=== PATIENT | male | born 1960 | race Native Hawaiian/Other Pacific Islander ===

== ENCOUNTER 2018-06-23 06:01 | Inpatient (IN) | payer OTHER ==
[2018-06-23 07:10] VITALS: BMI 30.2
[2018-06-23] MEDS ORDERED: Propofol 10 mg/ml Inj (20 ML) ONE (07:30)
[2018-06-23] MEDS ORDERED: Rocuronium 10 mg/ml (5 ml) ONE ×2 (07:30→10:27)
[2018-06-23] MEDS ORDERED: Succinylcholine Chloride 20 mg/ml Syr (5 ml) IV ONE (07:31)
[2018-06-23] MEDS ORDERED: Lidocaine 4% (Laryng-O-Jet) Kit MM ONE (07:31)
[2018-06-23] MEDS ORDERED: Dexamethasone 4 mg/1 ml ONE (07:35)
[2018-06-23] MEDS ORDERED: Absorbable Gelatin Sponge Size 12-7 ONE (08:11)
[2018-06-23] MEDS ORDERED: EPINEPHrine 1 mg/ml (1:1000) Inj ONE (08:11)
[2018-06-23] MEDS ORDERED: Bupivacaine 0.5% Inj(30mL) ONE (08:11)
[2018-06-23] MEDS ORDERED: Thrombin Topical 5,000 Int Units Spray Kit ONE (08:11)
[2018-06-23] MEDS ORDERED: Sodium Chloride 0.9% 20 ML IV ONE (08:11)
[2018-06-23] MEDS ORDERED: Midazolam 2 MG/2 ML VIAL ONE (08:25)
[2018-06-23] MEDS ORDERED: Tranexamic Acid 1,000 MG in Sodium Chloride 0.9% 100 ML IVPB ONE (08:57)
[2018-06-23] MEDS ORDERED: Morphine 5 mg/10 ml preservative-free Inj(Duramorph) ONE (09:04)
[2018-06-23] MEDS ORDERED: Sodium Chloride 0.9% Inj (10mL) IV ONE (09:51)
[2018-06-23] MEDS ORDERED: EPINEPHrine 1 mg/ml (1:1000) Inj IV ONE (09:51)
[2018-06-23] MEDS ORDERED: Bupivacaine 0.5% 50 ML IJ ONE (09:51)
[2018-06-23] MEDS ORDERED: Morphine 5 mg/10 ml preservative-free Inj(Duramorph) INJ ONE (09:51)
[2018-06-23] MEDS ORDERED: Neostigmine 1:1000 (1 mg/ml) Inj ONE (10:35)
--- NOTE | 2018-06-23 10:57 | PCM.SURG1 ---
Surgeon's Initial Post Op Note - Surgeon's Notes Surgeon: Junie Werner MD [employer]orer [employer]age: Karlo Chatterjee PA-C, Shelley Noel, Favio Yao DPM Pre-Operative Diagnosis: Left Knee OA Operative Findings: see op report Post-Operative Diagnosis: same as pre-op dx Operation Performed: L TKR Specimen/Specimens Removed: left knee bone and soft tissue Estimated Blood Loss: EBL {In ML}: 50 Date of Surgery/Procedure: 06/23/18 Time of Surgery/Procedure: 09:30
[2018-06-23] MEDS ORDERED: HYDROmorphone 0.5 mg/0.5 ml ISec IVP PRN (11:06)
[2018-06-23] MEDS: Lactated Ringer's 1,000 ML IV SCH ×2 (14:30→21:08)
--- NOTE | 2018-06-23 15:08 | RAD ---
Date of service: 06/23/2018 PROCEDURE: Left Knee Radiographs. HISTORY: Pain. COMPARISON: Bilateral knees radiographs 07/24/2016. TECHNIQUE: 2 views obtained. FINDINGS: BONES: Postop changes are identified at the anterior knee and thigh soft tissues including skin alphonso at the midline status post left total knee replacement. Hardware appears in good apparent position at the distal femur and proximal tibia with patella appearing intact grossly. Posterior thigh soft tissue calcifications identified. JOINTS: Interval left total knee replacement hardware in situ. JOINT EFFUSION: None. OTHER FINDINGS: None. IMPRESSION: Interval left total knee replacement with hardware in good apparent position. No acute fracture is identified with limited postoperative soft tissue changes at the anterior knee and mid to distal thigh soft tissues.
[2018-06-23] MEDS ORDERED: ceFAZolin 1 GM in Sodium Chloride 0.9% 100 ML IVPB ONE ×2 (15:30→21:30)
[2018-06-23] MEDS: oxyCODONE 5 mg Immediate Release Tab PO PRN (19:12)
--- NOTE | 2018-06-23 20:35 | OP ---
PROCEDURE DATE: 06/23/2018 PREOPERATIVE DIAGNOSIS: Left knee arthritis. POSTOPERATIVE DIAGNOSIS: Left knee arthritis. PROCEDURE: Left total knee replacement. ATTENDING PHYSICIAN: Junie Werner MD CASE FILLER: Karlo Chatterjee PA-C IMPLANTS SIZE: DePuy, Attune knee system. Size 6 tibial baseplate, size 6 femur, 10-mm polyethylene insert, 38-mm patella button. ANESTHESIA TYPE: General. ESTIMATED BLOOD LOSS: 50 mL. COMPLICATIONS: None. HISTORY: 1. Left knee. 2. General anesthesia. Examined under anesthesia. 3. Range of motion is from 3 to 120, varus alignment that was correctable. 4. Size 4 tibial baseplate. 5. A 10-mm trial spacer. 6. [place] patella, patella width was 26, patella button size was 38. 7. Size 6 femur. 8. A 10-mm polyethylene insert. The patient with prolonged history of left knee pain progressively getting worse despite extensive conservative management, which included activity modification, injections, anti-inflammatory modification and physical therapy. X-rays had revealed advanced arthritis. Patient was indicated for total knee replacement due to continued pain and limited mobility. I had a detailed discussion with the patient in the office explaining the nature of the surgery, alternatives of surgery, risks and benefits, rehabilitation protocol and surgical markings. Risks of surgery include but not limited to continued pain, lack of motion, infection, vascular injury, DVT / PE, nerve injury including peroneal nerve dysfunction, reflex sympathetic dystrophy, compartment syndrome, unforeseen medical and/or anesthesia complications, limb loss, and even . The patient expressed an understanding of the risks and possible benefits of the procedure, and is also aware of the alternatives to surgery. PROCEDURE: On the day of the surgery, the patient was admitted to pre-operative holding area. A laterality sheet was completed confirming the correct operative site. The correct surgical knee was marked in the holding area and informed consent was signed from the patient. Once again, I reviewed the risks and benefits of the surgery with the patient in detail. These risks include but are not limited to continued pain, lack of motion, infection, vascular injury, DVT / PE, nerve injury including peroneal nerve dysfunction, reflex sympathetic dystrophy, symptomatic hardware, need for further procedure and surgeries, instability, iatrogenic fractures, compartment syndrome, unforeseen medical and/or anesthesia complications, limb loss, and even . The patient expressed an understanding of the risks and possible benefits of the procedure, also aware of the alternatives to surgery and signed the informed consent. The patient was transported to the operating room and placed in the supine position, general anesthesia was obtained. A padded tourniquet was applied to patient's operative thigh and appropriate prophylactic antibiotics were given. The operative leg was draped and prepped in standard sterile manner. Timeout was completed, confirming patient's left knee to be the correct operative site. Using an Esmarch, the extremity was exsanguinated and tourniquet was inflated to 350 mmHg. The surgical incision markings were made using patella border, tibial tubercle, patella and quadriceps tendon. Using a 10 blade, a midline incision was made. Skin dissection was taken until the prepatellar fascia was identified and the corners of the patellar tendon were marked for proper closure at the end of the procedure. Using a fresh 10 blade, a medial parapatellar arthrotomy was performed. The knee was exposed in the standard manner. The deep MCL was elevated for exposure, medial and lateral menisci were removed, ACL and PCL were also transected. The tibia was subluxed anteriorly. Planned tibial cut was made with power saw, using extra-medullary guide, perpendicular to mechanical axis of the tibia. After the cut was made, the alignment was also checked and was found to be appropriate. Tibial cut surface was measured with trial base plate and it was noted that 6 would provide sufficient coverage without overhang. Tibial component was externally rotated and marked. Next, the knee was placed into 90 degrees of flexion. A drill hole was made within the femoral notch anterior to PCL insertion for placement of intramedullary femoral rosie. Intramedullary femoral rosie was inserted within the femoral canal and planned distal femoral cut was made. After the cut, knee was brought into full extension. Spacer blocks were used to check the extension balancing both in full extension and 30 degrees of flexion. It was found that 10-mm trial spacer block allowed full extension with symmetric varus and valgus balancing. Next we proceed with Patella resurfacing. Patella width was found 26 mm. Using the free-hand technique the arthritic patella surface was resected. Patella was sized using the guide and it was noted that 38 mm. Patella dome button would be appropriate for the patient. Next the size of femoral component was determined using the posterior referencing guide. It was noted that a size 6 femur would be appropriate for this patient without causing any significant notching. A 4 x 1 cutting block was placed and flexion gap balancing was checked. The flexion gap was found to be symmetric to the extension gap. Anterior and posterior condyle, anterior and posterior chamfer cuts were made. Next, appropriate size box cut for femoral component was prepared using the guide. The femoral trial component was impacted onto the distal femur. Appropriate size tibial trial component was also placed on the cut surface of the tibia. Using the drill and punch, keel for tibial implant was prepared. Trial tibial tray was secured onto the tibia using pins. Different size trial polyethylene inserts were secured on to the trial tibial tray to critically assess the following parametes: Full range of motion, extension and flexion gap balancing, mid-flexion stability, anterior and posterior drawer, and patellar tracking. All parameter were found to be satisfactory with 10-mm insert. All the trial components were removed. Implants were opened on the back table. Cement was mixed and we proceed with cement fixation of the implants. Tibial tray, femoral component and patellar dome button were secured with cement. Polyethylene insert was secured onto the tibial tray using locking mechanism. The knee was reduced and brought into full extension. Cement was allowed to harden until final component fixation. Knee was taken through the final range of motion for stability testing, and found to be satisfactory. During this procedure, I was assisted by Karlo Chatterjee PA-C, who assisted in positioning the patient on the operating room table as well as transferring the patient from the operating room table to the recovery room stretcher. In addition, Karlo Chatterjee PA-C assisted me during the actual operative procedure by positioning, protecting critical neurovascular structures, exposure of the joint, and proper positioning of the implants. The presence of Karlo Chatterjee PA-C as my operative respiratory therapist assistant was medically necessary to ensure the utmost safety of the patient in the pre, intra-, and post-operative periods. Junie Werner MD
[2018-06-23] MEDS: oxyCODONE 10 mg ER Tab (oxyCONTIN) PO SCH (21:06)
[2018-06-24] MEDS: Lactated Ringer's 1,000 ML IV SCH (06:00)
[2018-06-24 06:49] LABS: BASO % 0.4 % (0.0-2.0); EOS % 0.3 % (0.0-4.0); HEMOGLOBIN 13.4 g/dL (12.0-18.0); LYMPH # 1.4 K/uL (1.0-4.3); LYMPH % 11.2 % (20.0-40.0); MEAN CELL VOLUME 90.7 fl (80.0-94.0); MEAN CORPUSCULAR HEMOGLOBIN 31.2 pg (27.0-31.0); MEAN CORPUSCULAR HGB CONC 34.4 g/dL (33.0-37.0); MEAN PLATELET VOLUME 7.7 fl (7.2-11.7); MONO # 1.6 K/uL (0.0-0.8); MONO % 12.5 % (0.0-10.0); NEUT # 9.5 K/uL (1.8-7.0); NEUT % 75.6 % (50.0-75.0); NRBC % 0.1 % (0.0-0.0); RBC 4.3 Mil/uL (4.40-5.90); RED CELL DISTRIBUTION WIDTH 13.9 % (11.5-14.5); WHITE BLOOD COUNT 12.5 K/uL (4.8-10.8)
[2018-06-24 06:52] LABS: PROTHROMBIN TIME 11.7 Seconds (9.8-13.1)
[2018-06-24 06:55] LABS: PARTIAL THROMBOPLASTIN TIME 32.7 Seconds (25.6-37.1)
[2018-06-24 06:59] LABS: ALB/GLOB RATIO 1.3 (1.0-2.1); ALBUMIN 3.3 g/dL (3.5-5.0); ALT/SGPT 39 U/L (21-72); AST/SGOT 24 U/L (17-59); BLOOD UREA NITROGEN 16 mg/dl (9-20); CALCIUM 8.2 mg/dL (8.4-10.2); GFR NON-AFRICAN AMERICAN > 60
[2018-06-24] MEDS: oxyCODONE 10 mg ER Tab (oxyCONTIN) PO SCH ×2 (08:28→20:50)
[2018-06-24] MEDS: Multivitamin With Minerals Tab PO SCH (08:33)
[2018-06-24] MEDS ORDERED: IRON PO SCH (09:00)
[2018-06-24] MEDS ORDERED: Patient's Own Med (Icosapent Ethyl [Vascepa] 1 GM) PO SCH (09:00)
[2018-06-24] MEDS ORDERED: FOLIC ACID PO SCH (09:00)
[2018-06-24] MEDS ORDERED: MULTIVITAMIN PO SCH (09:00)
--- NOTE | 2018-06-24 09:02 | CP.PCM.PN ---
Subjective - Date & Time of Evaluation Date of Evaluation: 06/24/18 Time of Evaluation: 08:00 - Subjective Subjective: 57 yo M s/p LTKR POD#1 Pt seen and examined at bedside, comfortable in bed Pt denies any current left knee pain Pt denies SOB, chest pain, N/V/D, numbness/tingling LLE Objective - Vital Signs/Intake and Output Vital Signs (last 24 hours): Temp Pulse Resp BP Pulse Ox 98.6 F 94 H 20 148/82 95 06/24/18 07:54 06/24/18 08:24 06/24/18 07:54 06/24/18 08:24 06/24/18 07:54 - Medications Medications: Current Medications Acetaminophen (Tylenol 325mg Tab) 325 mg PO Q4 PRN PRN Reason: pain1-3orfever Amlodipine Besylate (Norvasc) 5 mg PO DAILY [facility] Last Admin: 06/24/18 08:23 Dose: 5 mg Aspirin (Ecotrin) 81 mg PO DAILY [facility] Last Admin: 06/24/18 08:23 Dose: 81 mg Atorvastatin Calcium (Lipitor) 40 mg PO DAILY [facility] Last Admin: 06/24/18 08:23 Dose: 40 mg Celecoxib (Celebrex) 200 mg PO Q12 [facility] Last Admin: 06/23/18 21:05 Dose: 200 mg Docusate Sodium (Colace) 100 mg PO TID [facility] Last Admin: 06/24/18 08:28 Dose: 100 mg Enoxaparin Sodium (Lovenox) 40 mg SC DAILY [facility]; Protocol Home Med (Icosapent Ethyl [Vascepa]) 1 gm PO DAILY [facility] Lactated Ringer's (Lactated Ringer's) 1,000 mls @ 100 mls/hr IV .Q10H [facility] Last Admin: 06/24/18 06:00 Dose: 100 mls/hr Ketorolac Tromethamine (Toradol) 15 mg IVP Q8 [facility] Stop: 06/25/18 23:59 Last Admin: 06/24/18 08:35 Dose: Not Given Losartan Potassium (Cozaar) 50 mg PO DAILY [facility] Last Admin: 06/24/18 08:24 Dose: 50 mg Metformin HCl (Glucophage) 1,000 mg PO DAILY [facility] Last Admin: 06/24/18 08:23 Dose: 1,000 mg Multivitamins/Minerals (Therapeutic-M Tab) 1 tab PO DAILY [facility] Last Admin: 06/24/18 08:33 Dose: 1 tab Oxycodone HCl (Oxycontin Extended Release Tab) 10 mg PO Q12 [facility] Stop: 07/07/18 21:01 Last Admin: 06/24/18 08:28 Dose: 10 mg Oxycodone HCl (Oxycodone Immediate Release Tab) 5 mg PO Q6 PRN PRN Reason: pain4-6 Last Admin: 06/23/18 19:12 Dose: 5 mg Tramadol HCl (Ultram) 50 mg PO Q4 PRN PRN Reason: pain7-10 - Labs Labs: 06/24/18 05:35 06/24/18 05:35 PT 11.7 Seconds (9.8-13.1) 06/24/18 05:35 INR 1.0 06/24/18 05:35 APTT 32.7 Seconds (25.6-37.1) 06/24/18 05:35 - Constitutional Appears: Well, No Acute Distress - Respiratory Exam Respiratory Exam: Clear to Ausculation Bilateral, NORMAL BREATHING PATTERN - Cardiovascular Exam Cardiovascular Exam: REGULAR RHYTHM, RRR - Extremities Exam Additional comments: Left knee: Dressing C/D/I Calves soft and nontender b/l Normal ROM lt ankle Distal pulses wnl Assessment and Plan - Assessment and Plan (Free Text) Assessment: 57yo M s/p LTKR POD#1 Plan: DVT ppx- start lovenox today PT/OT WBAT LLE F/U daily labs Incentive Spirometer WIll follow Discussed with Dr. Werner
[2018-06-24] MEDS: Enoxaparin 40 mg Syringe SC SCH (13:15)
[2018-06-24] MEDS: oxyCODONE 5 mg Immediate Release Tab PO PRN (13:18)
--- NOTE | 2018-06-25 02:30 | CP.PCM.HP ---
History of Present Illness - History of Present Illness History of Present Illness: CC: Left knee pain HPI: 57 y/o male with a PMH of Osteoarthritis underwent a left total knee replacement with Dr. Werner. As per the pt, he had been suffering from left knee pain and limited ROM for greater than one year. The pt tried conservative measures, which were unsuccessful, necessitating surgery. At the time of evaluation, the pt is in minimal pain and currently on the CPM machine. PMH: HTN, DM, Osteoarthritis, hyperlipidemia. PSH: Left knee cystoscopy. Allergies: NKDA. Review of Systems: Reviewed and no additional remarkable complaints except minimal left knee pain. Objective Appears: Calm, Non-toxic, No Acute Distress. Head Exam: NORMAL INSPECTION, normocephalic. Eye Exam: Normal eye inspection, EOMI, PERRLA. Respiratory Exam: NORMAL BREATHING PATTERN, CTA. Cardiovascular Exam: +S1, +S2. RRR. GI & Abdominal Exam: Soft, non-tender, non-distended. Neurological Exam: Alert, Awake, Oriented x3. Psychiatric exam: Normal mood. Calm and cooperative. Skin exam: Normal color, warm and dry. Assessment/Impression/Plan: 1.) Left total knee replacement -Underwent left TKR with Dr. Werner. Orthopedic consult input appreciated. -Continue CPM ROM machine. Toradol/oxycodone/tramadol for pain. -Monitor for s/s infection. -Lovenox for VTE prophylaxis. -PT/OT evaluation. Present on Admission - Present on Admission Any Indicators Present on Admission: No Past Patient History - Past Medical History & Family History Past Medical History?: Yes - Past Social History Smoking Status: Current Some Days Smoker - CARDIAC Hx Cardiac Disorders: Yes Hx Hypercholesterolemia: Yes Hx Hypertension: Yes - PULMONARY Hx Respiratory Disorders: No - NEUROLOGICAL Hx Neurological Disorder: No - HEENT Hx HEENT Problems: No - RENAL Hx Chronic Kidney Disease: No - ENDOCRINE/METABOLIC Hx Endocrine Disorders: Yes Hx Diabetes Mellitus Type 2: Yes (BORDERLINE) - HEMATOLOGICAL/ONCOLOGICAL Hx Blood Disorders: No Hx Anemia: No Hx Blood Transfusions: No - INTEGUMENTARY Hx Dermatological Problems: No - MUSCULOSKELETAL/RHEUMATOLOGICAL Hx Musculoskeletal Disorders: Yes Hx Arthritis: Yes Hx Falls: No Other/Comment: LIMITED JOINT MOTION LEFT KNEE - GASTROINTESTINAL Hx Gastrointestinal Disorders: No - GENITOURINARY/GYNECOLOGICAL Hx Genitourinary Disorders: No - PSYCHIATRIC Hx Emotional Abuse: No Hx Physical Abuse: No - SURGICAL HISTORY Hx Surgeries: Yes Hx Arthroscopy: Yes (LEFT KNEE) Other/Comment: CYSTOSCOPY - ANESTHESIA Hx Anesthesia: Yes Hx Anesthesia Reactions: No Hx Malignant Hyperthermia: No Has any member of the family had a problem w/ anesthesia?: No Meds Allergies/Adverse Reactions: Allergies Allergy/AdvReac Type Severity Reaction Status Date / Time No Known Allergies Allergy Verified 09/01/14 08:21 Results - Vital Signs Recent Vital Signs: Last Vital Signs Temp 97.9 F 06/25/18 00:00 Pulse 87 06/25/18 00:00 Resp 19 06/25/18 00:00 BP 138/76 06/25/18 00:00 Pulse Ox 96 06/25/18 00:00 - Labs Result Diagrams: 06/24/18 05:35 06/24/18 05:35 Labs: Laboratory Results - last 24 hr 06/24/18 06/24/18 06/24/18 05:35 05:35 05:35 WBC 12.5 H D RBC 4.30 L Hgb 13.4 D Hct 39.0 MCV 90.7 MCH 31.2 H MCHC 34.4 RDW 13.9 Plt Count 203 MPV 7.7 Neut % (Auto) 75.6 H Lymph % (Auto) 11.2 L [place] % (Auto) 12.5 H Eos % (Auto) 0.3 Baso % (Auto) 0.4 Neut # (Auto) 9.5 H Lymph # (Auto) 1.4 [place] # (Auto) 1.6 H Eos # (Auto) 0.0 Baso # (Auto) 0.0 PT INR APTT Sodium 135 Potassium 4.0 Chloride 101 Carbon Dioxide 26 Anion Gap 12 BUN 16 Creatinine 0.9 Est GFR ( Amer) > 60 Est GFR (Non-Af Amer) > 60 POC Glucose (mg/dL) Random Glucose 110 Hemoglobin A1c 5.9 Calcium 8.2 L Total Bilirubin 0.7 AST 24 ALT 39 Alkaline Phosphatase 44 Total Protein 5.9 L Albumin 3.3 L D Globulin 2.6 Albumin/Globulin Ratio 1.3 06/24/18 06/24/18 06/24/18 05:35 05:45 11:22 WBC RBC Hgb Hct MCV MCH MCHC RDW Plt Count MPV Neut % (Auto) Lymph % (Auto) [place] % (Auto) Eos % (Auto) Baso % (Auto) Neut # (Auto) Lymph # (Auto) [place] # (Auto) Eos # (Auto) Baso # (Auto) PT 11.7 INR 1.0 APTT 32.7 Sodium Potassium Chloride Carbon Dioxide Anion Gap BUN Creatinine Est GFR ( Amer) Est GFR (Non-Af Amer) POC Glucose (mg/dL) 115 H 99 Random Glucose Hemoglobin A1c Calcium Total Bilirubin AST ALT Alkaline Phosphatase Total Protein Albumin Globulin Albumin/Globulin Ratio 06/24/18 06/24/18 15:28 21:52 WBC RBC Hgb Hct MCV MCH MCHC RDW Plt Count MPV Neut % (Auto) Lymph % (Auto) [place] % (Auto) Eos % (Auto) Baso % (Auto) Neut # (Auto) Lymph # (Auto) [place] # (Auto) Eos # (Auto) Baso # (Auto) PT INR APTT Sodium Potassium Chloride Carbon Dioxide Anion Gap BUN Creatinine Est GFR ( Amer) Est GFR (Non-Af Amer) POC Glucose (mg/dL) 109 98 Random Glucose Hemoglobin A1c Calcium Total Bilirubin AST ALT Alkaline Phosphatase Total Protein Albumin Globulin Albumin/Globulin Ratio Assessment & Plan (1) Status post total left knee replacement Status: Acute
[2018-06-25] MEDS: oxyCODONE 5 mg Immediate Release Tab PO PRN ×2 (06:14→14:13)
[2018-06-25 07:04] LABS: BASO # 0.1 K/uL (0.0-0.2); BASO % 0.8 % (0.0-2.0); EOS # 0.2 K/uL (0.0-0.7); HEMOGLOBIN 13.1 g/dL (12.0-18.0); LYMPH # 1.9 K/uL (1.0-4.3); LYMPH % 20.5 % (20.0-40.0); MEAN CELL VOLUME 91.4 fl (80.0-94.0); MEAN CORPUSCULAR HGB CONC 33.9 g/dL (33.0-37.0); MEAN PLATELET VOLUME 7.6 fl (7.2-11.7); MONO # 1.5 K/uL (0.0-0.8); MONO % 15.7 % (0.0-10.0); NEUT # 5.7 K/uL (1.8-7.0); NRBC % 0.1 % (0.0-0.0); RBC 4.24 Mil/uL (4.40-5.90); WHITE BLOOD COUNT 9.4 K/uL (4.8-10.8)
[2018-06-25 07:18] LABS: BLOOD UREA NITROGEN 14 mg/dl (9-20); CALCIUM 8.3 mg/dL (8.4-10.2); GFR NON-AFRICAN AMERICAN > 60
[2018-06-25 08:10] VITALS: O2SAT 92
[2018-06-25] MEDS: Multivitamin With Minerals Tab PO SCH (08:55)
[2018-06-25] MEDS: Enoxaparin 40 mg Syringe SC SCH (08:55)
[2018-06-25] MEDS: oxyCODONE 10 mg ER Tab (oxyCONTIN) PO SCH (08:59)
[2018-06-25 16:05] VITALS: BP 165/88; PULSE 95; RESP 20; TEMP 99.1
--- NOTE | 2018-06-25 23:41 | CP.PCM.DIS ---
Provider - Provider Date of Admission: 06/23/18 11:04 Attending physician: Mac Lira MD Primary care physician: Mac Lira MD Time Spent in preparation of Discharge (in minutes): 30 Diagnosis - Discharge Diagnosis (1) Status post total left knee replacement Status: Acute Hospital Course - Lab Results Lab Results: Most Recent Lab Values WBC 9.4 K/uL (4.8-10.8) 06/25/18 05:40 RBC 4.24 Mil/uL (4.40-5.90) L 06/25/18 05:40 Hgb 13.1 g/dL (12.0-18.0) 06/25/18 05:40 Hct 38.8 % (35.0-51.0) 06/25/18 05:40 MCV 91.4 fl (80.0-94.0) 06/25/18 05:40 MCH 31.0 pg (27.0-31.0) 06/25/18 05:40 MCHC 33.9 g/dL (33.0-37.0) 06/25/18 05:40 RDW 14.0 % (11.5-14.5) 06/25/18 05:40 Plt Count 199 K/uL (130-400) 06/25/18 05:40 MPV 7.6 fl (7.2-11.7) 06/25/18 05:40 Neut % (Auto) 61.0 % (50.0-75.0) 06/25/18 05:40 Lymph % (Auto) 20.5 % (20.0-40.0) 06/25/18 05:40 [place] % (Auto) 15.7 % (0.0-10.0) H 06/25/18 05:40 Eos % (Auto) 2.0 % (0.0-4.0) 06/25/18 05:40 Baso % (Auto) 0.8 % (0.0-2.0) 06/25/18 05:40 Neut # (Auto) 5.7 K/uL (1.8-7.0) 06/25/18 05:40 Lymph # (Auto) 1.9 K/uL (1.0-4.3) 06/25/18 05:40 [place] # (Auto) 1.5 K/uL (0.0-0.8) H 06/25/18 05:40 Eos # (Auto) 0.2 K/uL (0.0-0.7) 06/25/18 05:40 Baso # (Auto) 0.1 K/uL (0.0-0.2) 06/25/18 05:40 PT 11.7 Seconds (9.8-13.1) 06/24/18 05:35 INR 1.0 06/24/18 05:35 APTT 32.7 Seconds (25.6-37.1) 06/24/18 05:35 Sodium 135 mmol/l (132-148) 06/25/18 05:40 Potassium 3.6 MMOL/L (3.6-5.0) 06/25/18 05:40 Chloride 100 mmol/L (98-107) 06/25/18 05:40 Carbon Dioxide 28 mmol/L (22-30) 06/25/18 05:40 Anion Gap 11 (10-20) 06/25/18 05:40 BUN 14 mg/dl (9-20) 06/25/18 05:40 Creatinine 0.7 mg/dl (0.8-1.5) L 06/25/18 05:40 Est GFR ( Amer) > 60 06/25/18 05:40 Est GFR (Non-Af Amer) > 60 06/25/18 05:40 POC Glucose (mg/dL) 98 mg/dL (65-110) 06/24/18 21:52 Random Glucose 97 mg/dL (75-110) 06/25/18 05:40 Hemoglobin A1c 5.9 % (4.2-6.5) 06/24/18 05:35 Calcium 8.3 mg/dL (8.4-10.2) L 06/25/18 05:40 Total Bilirubin 0.7 mg/dl (0.2-1.3) 06/24/18 05:35 AST 24 U/L (17-59) 06/24/18 05:35 ALT 39 U/L (21-72) 06/24/18 05:35 Alkaline Phosphatase 44 U/L (38-126) 06/24/18 05:35 Total Protein 5.9 G/DL (6.3-8.2) L 06/24/18 05:35 Albumin 3.3 g/dL (3.5-5.0) L D 06/24/18 05:35 Globulin 2.6 gm/dL (2.2-3.9) 06/24/18 05:35 Albumin/Globulin Ratio 1.3 (1.0-2.1) 06/24/18 05:35 Blood Type O POSITIVE 06/23/18 06:35 Antibody Screen Negative 06/23/18 06:35 BBK History Checked Patient has bt 06/23/18 06:35 - Hospital Course Hospital Course: Pt was admitted for left total knee replacement. The procedure was done by Dr. Werner, without complications. PT saw and evaluated the patient to improve strength. Once medically stable, the pt was discharged home. Discharge Plan - Discharge Medications Prescriptions: Aspirin 325 mg PO BID #60 tab Celecoxib [Celebrex] 100 mg PO BID #30 capsule - Follow Up Plan Condition: GOOD Disposition: HOME/ ROUTINE Instructions: Total Knee Replacement (DC), Weight-Bearing Restrictions Additional Instructions: follow up with dr ernst 1 week Referrals: Junie Werner MD [Staff Provider] - Mac Lira MD [Primary Care Provider] -
== END 2018-06-25 17:00 | disposition home or self-care (01) | DRG 470 ==
LOC: H.OPSURG 06:01 → H.MEDSURG1 11:04
PROVIDERS: ADMIT Family Medicine; ATTEND Family Medicine
PROC: 0SRD0J9 Replacement of Left Knee Joint with Synthetic Substitute, Cemented, Open Approach (ICD-10-PCS; principal; 2018-06-23 09:25)
DX: M17.12 Unilateral primary osteoarthritis, left knee (principal); I10 Essential (primary) hypertension; E11.9 Type 2 diabetes mellitus without complications; E78.5 Hyperlipidemia, unspecified; F17.200 Nicotine dependence, unspecified, uncomplicated; E78.00 Pure hypercholesterolemia, unspecified